=== PATIENT | female | born 1960 | race American Indian/Alaskan Native ===

== ENCOUNTER 2017-12-05 09:26 | Outpatient (CLI) | payer OTHER ==
--- NOTE | 2017-12-05 10:03 | XRay Report ---
RIGHT HIP, 2 views: History: Pain in right hip. The bony architecture is intact without evidence of fracture or dislocation. No significant soft tissue abnormality is seen. IMPRESSION: Normal right hip.
--- NOTE | 2017-12-05 10:43 | Ultrasound Report ---
ULTRASOUND EXTREMITY NONVASCULAR RIGHT History: Localized swelling, mass and lump, right lower limb. Findings: Targeted renner scale ultrasound was performed in the anterior right thigh region the site of a palpable mass. The images demonstrate an approximate 2.5 x 1.0 x 1.5 cm masslike lesion resembling subcutaneous fat on ultrasound. No soft tissue mass, calcifications or fluid collection. Impression: Lipoma.
== END 2017-12-05 09:27 | disposition home or self-care (01) ==
LOC: US 09:26
PROVIDERS: ATTEND Internal Medicine
DX: D17.9 Benign lipomatous neoplasm, unspecified (principal)

== ENCOUNTER 2018-01-20 09:04 | Day surgery (SDC) | payer OTHER ==
[~2018-01-20 09:04] MED LIST: ANCEF/STERILE WATER 2 GM/20 ML IV NR
[2018-01-20 10:49] LABS: BUN/Creatinine Ratio 20; Blood Urea Nitrogen 16 mg/dL (7-17); Calcium 9.6 mg/dL (8.4-10.2); Hemolysis Index 9
[2018-01-20] MEDS ORDERED: ZOFRAN IV PRN (10:58)
[2018-01-20] MEDS ORDERED: PERCOCET 5/325 PO PRN (10:58)
[2018-01-20] MEDS ORDERED: TORADOL IV PRN (10:58)
[2018-01-20] MEDS ORDERED: TYLENOL PO PRN (10:58)
[2018-01-20] MEDS ORDERED: DILAUDID IV PRN (10:58)
--- NOTE | 2018-01-20 10:58 | Anesthesia Consultation ---
Anesthesia Consult and Med Hx Date of service: 01/20/18 - Airway Anesthetic Teeth Evaluation: Good ROM Head & Neck: Adequate Mental/Hyoid Distance: Adequate Mallampati Class: Class II Intubation Access Assessment: Probably Good - Pulmonary Exam CTA: Yes - Cardiac Exam Cardiac Exam: RRR - Pre-Operative Health Status ASA Pre-Surgery Classification: ASA2 Proposed Anesthetic Plan: MAC - Cardiovascular System Hx Hypertension: Yes (15Y)
--- NOTE | 2018-01-20 10:58 | Anesthesia Day of Surgery ---
Anesthesia Day of Surgery - Day of Surgery Patient Examined: Yes Patient H&P Reviewed: Yes Patient is NPO: Yes Beta Blockers: No
[2018-01-20] MEDS ORDERED: LACTATED RINGERS 1,000 ML IV SCH (11:00)
[2018-01-20] MEDS ORDERED: DILAUDID ONE (12:04)
[2018-01-20] MEDS ORDERED: DIPRIVAN 10 MG/ML IV ONE ×2 (12:04→12:33)
[2018-01-20] MEDS ORDERED: XYLOCAINE MPF 2% ONE (12:05)
[2018-01-20] MEDS ORDERED: MARCAINE 0.25% INFILTRATI ONE ×2 (12:14→12:30)
[2018-01-20] MEDS ORDERED: XYLOCAINE 1%/ EPI 1:100,000 INFILTRATI ONE ×2 (12:28→12:30)
[2018-01-20] MEDS ORDERED: SUBLIMAZE ONE (12:33)
--- NOTE | 2018-01-20 12:44 | Short Stay Summary ---
Short Stay Documentation Date of service: 01/20/18 - History H&P: obtained from office - Allergies and Medications Current Medications: Allergies amlodipine Allergy (Verified 01/13/18 17:17) Hives Home Medications Medication Instructions Recorded Confirmed Last Taken Type Latanoprost 0.005% [Xalatan 0.005%] 1 drop OP QPM 01/13/18 01/13/18 01/19/18 History Losartan [Cozaar] 25 mg PO QDAY 01/13/18 01/13/18 01/20/18 08:00 History Simvastatin [Zocor TAB] 20 mg PO QHS 01/13/18 01/13/18 01/19/18 History hydroCHLOROthiazide [HCTZ] 25 mg PO QDAY 01/13/18 01/13/18 01/20/18 08:00 History Aspirin [Aspirin BABY CHEW TAB] 81 mg PO QDAY 01/20/18 01/20/18 01/13/18 History Active Medications Acetaminophen (Tylenol) 650 mg PO ONCE PRN PRN Reason: Pain, Mild (1-3) Stop: 01/20/18 20:00 Cefazolin Sodium (Ancef/Sterile Water 2 Gm/20 Ml) 2 gm IV PREOP NR Stop: 01/20/18 23:59 Hydromorphone HCl (Dilaudid) 0.25 mg IV Q10MIN PRN PRN Reason: Pain, Moderate (4-6) Stop: 01/20/18 20:00 Lactated Ringer's (Lactated Ringers) 1,000 mls @ 100 mls/hr IV DIRECT ALIX Last Admin: 01/20/18 10:30 Dose: 100 mls/hr Ketorolac Tromethamine (Toradol) 30 mg IV ONCE PRN PRN Reason: Pain, Moderate (4-6) Stop: 01/20/18 20:00 Ondansetron HCl (Zofran) 4 mg IV ONCE PRN PRN Reason: Nausea And Vomiting Stop: 01/20/18 20:00 Oxycodone/Acetaminophen (Percocet 5/325) 1 tab PO ONCE PRN PRN Reason: Pain, Moderate (4-6) Stop: 01/20/18 20:00 - Brief post op/procedure progress note Date of procedure: 01/20/18 Pre-op diagnosis: Soft tissue mass R thigh <3cm Post-op diagnosis: same Procedure: Excision of Soft tissue mass right thigh <3cm Anesthesia: GETA, local Surgeon: JORJE SPENCER Estimated blood loss: none Pathology: list (soft tissue mass right thigh) Specimen disposition: to lab Condition: stable - Disposition Condition at discharge: Good Disposition: DC-01 TO HOME OR SELFCARE Short Stay Discharge Plan Activity: no restrictions Diet: regular Wound: remove dressing (01/22/18 and then may shower) Follow up with: LAWRENCE SIMS MD [Primary Care Provider] - 7 Days JORJE SPENCER MD [Staff Physician] - 7 Days Prescriptions: oxyCODONE /ACETAMINOPHEN [Percocet 5/325] 1 tab PO Q4HR PRN #10 tab PRN Reason: Pain , Severe (7-10)
--- NOTE | 2018-01-20 14:26 | Operative Report ---
PREOPERATIVE DIAGNOSIS: Soft tissue mass, right thigh, less than 3 cm. POSTOPERATIVE DIAGNOSIS: Soft tissue mass, right thigh, less than 3 cm. PROCEDURE: Excision of soft tissue mass, right thigh, less than 3 cm. SURGEON: Andrew Dickens MD ANESTHESIA: General and local. ESTIMATED BLOOD LOSS: Minimal. SPECIMEN: Soft tissue mass, right thigh. COMPLICATIONS: None. INDICATIONS: This is a 57-year-old female who has a soft tissue mass in her right anterior thigh that she wants removed for diagnostic and therapeutic purposes. OPERATIVE COURSE: The patient was brought to the operating room, identified, and placed in the supine position. She desired general anesthesia and was put to sleep. Her right thigh was then prepped and draped in usual manner. Prior to the incision, the area was injected with 0.25% Marcaine and 1% lidocaine. We made a linear incision over top of the mass where it was marked in preop and carried this down into subcutaneous tissues. A 2 x 1 cm round segment fat was enucleated consistent with a lipoma. The cavity was hemostatic. There was no other mass found. We closed the skin with a running 4-0 Vicryl suture, Steri-Strips and bandage. She tolerated the procedure well without complications. JOB# [id number] MISTY/KENAN
[2018-01-20 15:07] VITALS: BP 134/73
--- NOTE | 2018-01-21 07:36 | Post Anesthesia Evaluation ---
- Post Anesthesia Evaluation Patient Participated: Yes Airway Patent: Yes Stable Respiratory Function: Yes Nausea/Vomiting: No Temp > 96.8F: No Pain Manageable: Yes Adequeate Hydration: Yes Anesthesia Complications: No
== END 2018-01-20 14:55 | disposition home or self-care (01) ==
LOC: OR 09:04
PROVIDERS: ATTEND Surgery
DX: D17.23 Benign lipomatous neoplasm of skin and subcutaneous tissue of right leg (principal); I10 Essential (primary) hypertension; E78.00 Pure hypercholesterolemia, unspecified; Z79.01 Long term (current) use of anticoagulants; Z98.890 Other specified postprocedural states; Z90.710 Acquired absence of both cervix and uterus
CPT/HCPCS: 27337; 36415; 80048; J0690; J1170; J1885; J2405; J2704; J3010; J7120